=== PATIENT | female | born 1970 | race Two or more races ===

== ENCOUNTER 2020-08-23 12:39 | Emergency (ER) | payer MEDICAID ==
[~2020-08-23] VITALS: Ht 180.3 cm; Wt 112.9 kg
[2020-08-23 15:03] VITALS: BP 146/83
== END 2020-08-23 16:20 | disposition home or self-care (01) ==
LOC: ER 12:39
DX: G44.209 Tension-type headache, unspecified, not intractable (principal); I10 Essential (primary) hypertension
CPT/HCPCS: 70450